=== PATIENT | male | born 1935 | race Caucasian/White ===

== ENCOUNTER 2017-11-23 08:13 | Day surgery (SDC) | payer MEDICARE, BC, MEDICAID ==
[~2017-11-23] VITALS: Ht 162.6 cm; Wt 100.2 kg
[~2017-11-23 08:13] MED LIST: ACETAMINOPHEN500 M3 PO; ALLEGRA60 MG PO; ASPIRIN 81MG TA81 MG PO; ATIVAN GENERIC0.5 MG PO; ATIVAN1 MG PO; CELEXA40 MG PO; COREG 12.5 MG12.5 MG PO; FERROUS SULFAT325 M2 PO; FISH OIL1000 MG PO; HYDROXYZINE HCL25 MG PO; IMODIUM A-D2 MG PO; LASIX 20MG. TAB20 MG PO; LEADER FIBER1 POW; LEVOTHYROXINE0.05 M2 PO; METFORMIN ER500 M1 PO; MYLANTA 360 ML360 ML PO; NEURONTIN 300M300 MG PO; RESTORIL 15MG C15 MG PO; RISPERDAL 0.20.25 MG PO; RISPERDAL 1 MG T1 MG PO; ROBITUSSIN DM S10 ML PO; TAGAMET HB200 MG PO; TAMIFLU 75MG CA75 MG PO; TAMSULOSIN HYD0.4 MG PO; TRAZODONE150 MG PO; TRICOR 145 MG145 MG PO; TRILEPTAL 150150 MG PO; ZESTRIL 10MG TA10 MG PO
--- NOTE | 2017-11-23 10:22 | Anesthesia Record ---
Anesthesia Record Part II Discharge time: 1045 Destination: Same day surgery PACU nurse assessment review? Yes Patient is: Stable Anesthesia complications? No at 1026
--- NOTE | 2017-11-23 10:22 | Anesthesia Record ---
Anesthesia Record Part I Total IV fluids: 500 EBL (ml): 5 Urine Output: 0 B/P: 152/84 % SaO2: 95 Pulse: 96 Resps: 16 Temp: 97.1 Patient is: Drowsy, Nasal O2, Stable Stable to PACU at: 1015 at 1022
--- NOTE | 2017-11-23 10:25 | Operative Note ---
Removal of Neoplasm Date of procedure: 11/23/17 Pre-op diagnosis: Neoplasm upper lip 3cm Post-op diagnosis: 1. Neoplasm upper lip 3cm 2. gingivo-labial abscess upper jaw 3cm Surgeon: Mohan Barrientos Anesthesia type: General Description of procedure: The face was prepped and draped. The eyes were protected with Steri-Strips the perilesional area was infiltrated with 2 mL of 2 percent lidocaine containing epinephrine. There was a large neoplasm involving the LEFT midportion of the upper lip and there was a soft swelling to the RIGHT side of that lesion. A mucosal incision was marked out around the lesion and the lesion on the lip was excised and submitted. Flaps were then elevated, and the fluctuant swelling to the RIGHT side of the neoplasm was explored. It turned out to be a loculated abscess. The abscess measured about 3 cm. It was drained and cultures were sent for C and S and anaerobes. A tissue rearrangement geometric plastic repair was then done with interrupted of 5-0 Vicryl and 5-0 nylon sutures in excellent repair was obtained. I should note that to 2 mL of 2 percent lidocaine with epi were injected into the perilesional area at the start of the procedure. Blood loss was less than 5 mL and completely stopped with bipolar cautery. Surgicel snow was placed in the cavity prior to the repair. EBL (ml): 2 Specimens obtained: Same as above Complications: None Additional Information: Ancef 1gm and Decadron 12mg preop at 1020
[2017-11-23 12:59] VITALS: BP 156/87
== END 2017-11-23 11:50 | disposition home or self-care (01) ==
LOC: SDC 08:13
PROVIDERS: Otolaryngology
PROC: 0C95XZZ Drainage of Upper Gingiva, External Approach (ICD-10-PCS; principal; 2017-11-23 09:00)
DX: D49.2 Neoplasm of unspecified behavior of bone, soft tissue, and skin (principal); K05.219 Aggressive periodontitis, localized, unspecified severity; E11.9 Type 2 diabetes mellitus without complications